=== PATIENT | male | born 1995 | race Caucasian/White ===

== ENCOUNTER 2022-05-10 08:38 | Emergency (ER) | payer SELFPAY ==
[~2022-05-10] VITALS: Ht 165.1 cm; Wt 122.7 kg
[2022-05-10] MEDS ORDERED: CLINDAMYCIN PHOS 150 MG/ML 4 ML VIAL IM ONE (10:30)
[2022-05-10] MEDS ORDERED: CLIN300C58 PO (10:36)
[2022-05-10] MEDS ORDERED: CLINDAMYCIN HCL 150 MG CAPSULE PO ONE (10:45)
[2022-05-10 10:49] VITALS: BP 116/75
== END 2022-05-10 11:12 | disposition home or self-care (01) ==
LOC: EMS 08:43
DX: L03.115 Cellulitis of right lower limb (principal)
CPT/HCPCS: 99283; J3490